=== PATIENT | female | born 1995 | race Hispanic/Latino ===

== ENCOUNTER → 2020-05-25 | Day surgery (SDC) | payer BC, OTHER ==
[~2020-05-25] MED LIST: FENTANYL CITRATE/PF 100MCG/2 ML INJ ONE; LIDOCAINE HCL 2% LOCAL INJ 5 ML SDV VIAL INJ ONE; MIDAZOLAM HCL 2 MG/2 ML VIAL ONE; NAUSEA MEDICATION PO; PANTOPRAZOLE 40 MG 10ML VIAL ONE; PROPOFOL IV EMULSION 10 MG/ML 20 ML VIAL ONE
[2020-05-25 08:35] VITALS: BP 106/75
== END | disposition home or self-care (01) ==
LOC: OR 06:11
PROVIDERS: ATTEND Internal Medicine Gastroenterology
DX: K29.70 Gastritis, unspecified, without bleeding (principal); K20.90 Esophagitis, unspecified without bleeding; K22.8 Other specified diseases of esophagus; R63.0 Anorexia; R74.8 Abnormal levels of other serum enzymes; R03.0 Elevated blood-pressure reading, without diagnosis of hypertension; Z01.812 Encounter for preprocedural laboratory examination; Z11.59 Encounter for screening for other viral diseases
CPT/HCPCS: 43239; 81025; C9113; J2001; J2250; J2704; J3010; U0002

== ENCOUNTER → 2020-06-25 | Outpatient (CLI) | payer BC ==
[~2020-06-25] MED LIST changes: -FENTANYL CITRATE/PF 100MCG/2 ML INJ ONE; -LIDOCAINE HCL 2% LOCAL INJ 5 ML SDV VIAL INJ ONE; -MIDAZOLAM HCL 2 MG/2 ML VIAL ONE; -PANTOPRAZOLE 40 MG 10ML VIAL ONE; -PROPOFOL IV EMULSION 10 MG/ML 20 ML VIAL ONE
--- NOTE | 2020-06-25 09:52 | Diagnostic Imaging Report ---
Abdominal Ultrasound Clinical Diagnosis: Nausea, bloating Comparison: None Technique: Multiple transaxial and longitudinal images were obtained through the abdomen with real time ultrasonography. A low-frequency curvilinear transducer was utilized. Multiple images were submitted for interpretation. Report: Liver: The liver measures 16.1 cm in the right midaxillary line. There are no focal masses or abnormal cysts. The echogenicity is slightly increased. Spleen: The spleen measures 10 cm in the left mid axillary line. There are no focal masses or cysts. Gallbladder: The transverse diameter is normal cm. The wall measures 3 mm. There are no shadowing stones visualized. There is no sludge visualized. Sonographic Johnson's sign is negative. Biliary tree: There is no evidence of intra or extra hepatic biliary ductal dilatation. The common bile duct measures 3 mm. Portal vein: The portal vein measures 12 mm. There is hepatopedal flow. Hepatic veins: Unremarkable. Pancreas: The pancreatic tail is not well seen secondary to overlying bowel gas. Ascites: Absent Pleural Effusion: Absent Right kidney: The right kidney measures 10.4 x 4.8 x 4.7 cm. There is no evidence of hydronephrosis, mass, cyst. Left kidney: The left kidney measures 11 x 5.7 x 4.2 cm. There is no evidence of hydronephrosis, mass, cyst. IVC/Aorta: Partially seen segments demonstrate no abnormality. Impression: Mild hepatomegaly with increased echogenicity suggestive of diffuse fatty infiltration. Correlation with liver enzymes recommended. No other significant abnormality. Signed by: Eduardo Shields MD on 06/25/2020 9:49 AM
== END ==
LOC: US 07:46
PROVIDERS: ATTEND Internal Medicine Gastroenterology
DX: R11.0 Nausea (principal); R14.0 Abdominal distension (gaseous)
CPT/HCPCS: 76700

== ENCOUNTER 2022-06-11 19:59 | Emergency (ER) | payer BC ==
[~2022-06-11] VITALS: Ht 167.6 cm; Wt 71.2 kg
== END 2022-06-11 20:39 | disposition home or self-care (01) ==
LOC: ER 20:23
DX: O03.9 Complete or unspecified spontaneous abortion without complication (principal)
CPT/HCPCS: 99282